=== PATIENT | male | born 2000 | race Caucasian/White ===

== ENCOUNTER → 2023-09-23 14:27 | Outpatient (REF) | payer BC, SELFPAY | LOC: CLAB 14:27 | PROVIDERS: ATTENDING PHYSICIAN Otolaryngology | DX: J32.4 Chronic pansinusitis (principal); J32.9 Chronic sinusitis, unspecified; J34.2 Deviated nasal septum; J34.89 Other specified disorders of nose and nasal sinuses | CPT/HCPCS: 88304; 88311 ==